=== PATIENT | female | born 1965 | race Caucasian/White ===

== ENCOUNTER 2020-05-24 17:46 | Emergency (ER) | payer OTHER, SELFPAY ==
--- NOTE | ~2020-05-24 | XR_ITS ---
EXAMINATION: XR chest 2V 05/24/2020 18:31 INDICATION: Chest tightness PROCEDURE: 2 view chest COMPARISON: 01/07/2019 FINDINGS: The lungs are clear. The cardiomediastinal silhouette is within normal limits. There are no pleural effusions. There is no pneumothorax suspected. IMPRESSION: 1: NO ACUTE CARDIOPULMONARY DISEASE. Reviewed, dictated and finalized at location A. 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
--- NOTE | ~2020-05-24 | CT_ITS ---
EXAMINATION: CTA chest PE protocol DATE: 05/24/2020 21:13 [employer]IPPER AUT[employer] INDICATION: Shortness of breath TECHNIQUE: Computed tomographic angiography (CTA) of the chest was performed with 100 mL Omnipaque-35 0 intravenous contrast. The dose-length product was 204.19 mGy-cm. Maximum intensity projection 3D-re constructions of the aorta and other arteries were constructed by the technologist on a separate work station. Automated exposure control and iterative reconstruction technique were employed. COMPARISON: Chest dated 05/24/2020. FINDINGS: Study is technically adequate without evidence for pulmonary embolism. Evaluation of subseg mental pulmonary arteries in the lower lobes limited by motion. No pleural or pericardial effusion. N o thoracic lymphadenopathy. No evidence for aortic aneurysm or dissection. Heart size normal. Upper a bdomen is unremarkable. No endobronchial lesions. No focal airspace disease. No pneumothorax. No acut e osseous abnormality. IMPRESSION: 1. No acute cardiopulmonary disease. No evidence for pulmonary embolism. Evaluation of lower lobe seg mental arteries limited by motion. Reviewed, dictated and finalized at location A. PER AUTOMATIC IMPRESSION: 1. No acute cardiopulmonary disease. No evidence for pulmonary embolism. Evalua tion of lower lobe segmental arteries limited by motion.
[2020-05-24 17:50] VITALS: BP 168/70; PULSE 118; RESP 18; TEMP 36.5; O2SAT 100
--- NOTE | 2020-05-24 17:58 | ECG_ITS ---
Measurements Intervals [place] Rate: 108 P: 71 LA: 114 QRS: 68 QRSD: 90 T: 4 QT: 320 QTc: 429 Interpretive Statements SINUS TACHYCARDIA WITH SHORT LA INTERVAL POSSIBLE LEFT ATRIAL ENLARGEMENT BORDERLINE ST-T WAVE ABNORMALITY- ANTEROLAT/INF LEADS BASELINE ARTIFACT- II, AVR, AVL, AVF, V1, V3 ABNORMAL ECG Electronically Signed On 05-25-2020 7:20:29 [employer] by Harley Alvarez D.O.
--- NOTE | 2020-05-24 18:03 | ED.ARRPALP ---
HPI - Arrhythmia/Palpitations General Chief Complaint: Arrhythmia/Palpitations Stated Complaint: chest palpitations Time Seen by Provider: 05/24/20 17:51 Source: RN notes reviewed History of Present Illness HPI narrative: Patient presents to emergency department from home for heart palpitations. Patient states for the past 2 hours she has been having episodes feel like her heart is racing. She states her heart rate goes up she does feel some mild midsternal tightness. She states that it will rate and will go up and down on its own. She denies any fevers or chills shortness of breath abdominal pain nausea vomiting or any other symptoms. She states she did have increased caffeine intake today secondary to cough congestion denies any previous cardiac history Related Data Home Medications Medication Instructions Recorded Confirmed conjugated estrogens [Premarin] 05/24/20 cyanocobalamin (vitamin B-12) mcg INTRANASAL 05/24/20 [Nascobal] estradiol-levonorgestrel [Climara patch 05/24/20 Pro] Allergies Allergy/AdvReac Type Severity Reaction Status Date / Time propoxyphene Allergy Severe N/V Verified 01/07/19 09:16 Review of Systems Review of Systems: Narrative: Gen.: Denies fevers or chills ENT: Denies congestion Respiratory: Denies shortness of breath or cough CV: See HPI GI: Denies abdominal pain nausea, emesis or diarrhea Musculoskeletal: Denies back pain or muscle pain Neuro: Denies numbness, tingling, weakness or focal weakness Skin: Denies rash Except as documented, all other systems reviewed and negative [facility] Past Medical History Medical History (Updated 05/24/20 @ 22:29 by Ace Flynn DO) Patient denies significant medical history Social History Social History (Updated 05/24/20 @ 18:04 by Ace Flynn DO) Smoking status: Never smoker Exam Narrative: Exam Narrative: APPEARANCE: No acute distress, nontoxic, resting in bed EYES: EOMI HEENT: Normocephalic, atraumatic, OMM RESPIRATORY: No respiratory distress Clear to auscultation bilaterally with no rhonchi wheezing or rales. CARDIOVASCULAR: Regular rate and rhythm without murmurs rubs or gallops. ABDOMINAL: Soft, nontender, nondistended, no rebound or guarding MUSCULOSKELETAl: Moves all extremities. No clubbing, cyanosis or edema. NEURO: Awake and alert. Following commands, speech normal, no focal deficits SKIN:: Warm, dry. No rashes lesions or abrasions PSYCHIATRIC: Normal affect/mood, Course Course Emergency Course: Patient remained on cardiac cath lab technologist throughout stay in ED no arrhythmias noted. Heart rate did improve to the 90s. Patient does state that she had been on oral hormone therapy and is being followed by Dr. Benjamin she was stopped on her oral therapy on and is scheduled to start a patch tomorrow states Dr. Benjamin is her primary care physician Called and discussed with Dr. John for Dr. Benjamin presentation work-up agrees plan for discharge we did discuss the patient's TSH and they will follow as an outpatient Discussed with patient results of workup and diagnosis. Discussed need for follow-up with primary care, proper use of medication, and reasons to return to the emergency department. Patient understands and agrees to current treatment plan Vital Signs Vital signs: Vital Signs Temperature 97.7 F 05/24/20 17:50 Pulse Rate 118 H 05/24/20 17:50 Respiratory Rate 18 05/24/20 17:50 Blood Pressure 168/70 H 05/24/20 17:50 Pulse Oximetry 100 05/24/20 17:50 Temperature 97.7 F 05/24/20 17:50 Pulse Rate 94 05/24/20 21:41 Respiratory Rate 20 05/24/20 21:41 Blood Pressure 142/74 H 05/24/20 21:41 Pulse Oximetry 99 05/24/20 21:41 MDM - Arrhythmia/Palpitations MDM Narrative Medical decision making narrative: Patient's EKGs and labs are without significant high risk changes. Cardiac risk factors reviewed. Patient is felt likely low risk for ACS and reasonable for further risk stratifi
[2020-05-24 18:16] LABS: Basophils Absolute Auto 0.1 K/mm3 (0.0-0.1); Basophils Percent Auto 0.6 % (0.2-1.2); Eosinophils Absolute Auto 0.1 K/mm3 (0-0.3); Eosinophils Percent Auto 0.9 % (0-4.4); Hematocrit 40.1 % (37.0-47.0); Hemoglobin 13.6 g/dL (12.0-15.0); Immature Granulocyte Absolute 0.05 K/mm3 (0.00-0.031); Immature Granulocyte Percent A 0.4 % (0-0.5); Lymphocytes Absolute Auto 2.17 K/mm3 (0.9-3.2); Lymphocytes Percent Auto 18.1 % (18.3-44.2); Mean Corpuscular HGB Conc 33.9 g/dl (32-36); Mean Corpuscular Hemoglobin 31.5 pg (26-34); Mean Corpuscular Volume 92.8 fl (80-100); Monocytes Absolute Auto 0.5 K/mm3 (0.1-0.6); Monocytes Percent Auto 4.4 % (2.6-8.5); Neutrophils Percent Auto 75.6 % (45.5-73.1); Platelet Count Result 343 k/mm3 (150-375); Red Blood Count 4.32 M/mm3 (4.2-5.4); Red Cell Distribution Width 12.4 % (11.5-14.5)
[2020-05-24 18:23] LABS: INR 0.9; Partial Thromboplastin Time 30.5 SECONDS (22.3-36.8); Prothrombin Time 12.1 Seconds (11.1-14.7)
[2020-05-24 18:31] LABS: Anion Gap 10 mmol/L (8-16); Blood Urea Nitrogen 12 mg/dL (7-17); Carbon Dioxide 26 mmol/L (22-30); Chloride 102 mmol/L (98-107); Estimated CRCL calculation 93 ml/min; Estimated Glomerular Filt Rate > 60; Glucose 112 mg/dL (65-105); Potassium 3.3 mmol/L (3.4-5.0); Sodium 138 mmol/L (137-145)
[2020-05-24] MEDS: SODIUM CHLORIDE 0.9% IV 1,000 ML 999 ML IV CONT (18:38)
[2020-05-24 18:43] LABS: Troponin I < 0.012 ng/mL (0.000-0.034)
[2020-05-24 18:55] LABS: D Dimer 0.27 ug/mL (<0.48)
[2020-05-24 19:27] VITALS: BP 142/72; PULSE 98; RESP 18; O2SAT 99
[2020-05-24 21:41] VITALS: BP 142/74; PULSE 94; RESP 20; O2SAT 99
[2020-05-24 21:46] LABS: Troponin I < 0.012 ng/mL (0.000-0.034)
[2020-05-24 22:05] LABS: Thyroid Stimulating Hormone 0.236 uIU/mL (0.465-4.680)
[2020-05-24] MEDS: POTASSIUM CHLORIDE 20 MEQ TABLET PO (22:13)
[2020-05-24 22:46] VITALS: BP 132/78; PULSE 88; RESP 18; O2SAT 99
== END 2020-05-24 22:48 | disposition home or self-care (01) ==
PROVIDERS: Emergency Provider Emergency Medicine
DX: R00.2 Palpitations (principal); R00.0 Tachycardia, unspecified; R94.31 Abnormal electrocardiogram [ECG] [EKG]
CPT/HCPCS: 36415; 71046; 71275; 80048; 84443; 84484; 85025; 85380; 85610; 85730; 93005; 96360; 99284; A9270; J7030; Q9967

== ENCOUNTER 2020-10-21 09:42 | Outpatient (CLI) | payer OTHER, SELFPAY ==
--- NOTE | ~2020-10-21 | MM_ITS ---
EXAMINATION: MM screening [facility] HISTORY: Screening mammogram TECHNIQUE: Craniocaudal and mediolateral oblique 3-D tomosynthesis images were obtained and synthetic 2-D images were generated. CAD analysis was submitted and interpreted. COMPARISON: 08/07/2019, 07/18/2018, 07/13/2017 BREAST PARENCHYMAL COMPOSITION: There are scattered areas of fibroglandular density. FINDINGS: There is no evidence of suspicious mass, calcification, or architectural distortion to sugg est malignancy in either breast. There has been no suspicious interval change. IMPRESSION: 1. No mammographic evidence of malignancy. 2. Recommend routine screening mammography in one year. BI-RADS Category 1: Negative Reviewed, dictated and finalized at location A.
--- NOTE | ~2020-10-21 | DEXA_ITS ---
Bone Density Report Name: Brenda Cotter Age: 55 Sex: Female Ethnicity: White Date of : 1965 Indication: parental hip fracture; height loss; Referring Provider: CARMEN WOODS Study: Bone densitometry was performed. Exam Date: October 21, 2020 Accession number: [id number] Bone Density: Region BMD T-score Z-score Classification AP Spine (L1, L2, L3) 1.066 0.4 1.5 Normal Femoral Neck (Left) 0.673 -1.6 -0.5 Osteopenia Total Hip (Left) 0.867 -0.6 0.1 Normal Total Hip Bilateral Avg 0.867 -0.6 0.1 Normal Femoral Neck (Right) 0.688 -1.4 -0.4 Osteopenia Total Hip (Right) 0.867 -0.6 0.1 Normal World Health Organization criteria for BMD impression classify patients as: Normal (T-score at or above -1.0), Osteopenia (T-score between -1.0 and -2.5), or Osteoporosis (T-score at or below -2.5). 10-year Fracture Risk: FRAX not reported because: Premenopausal woman Clinical Information Provided by Patient: Parent has had a hip fracture Has used the following medications: Vitamin D Patient maximum height was 65 Onset of menses at age 13 Premenopausal Number of children 4 Impression: The patient's bone mass is within expected range for age, gender and ethnicity. The patient has risk factors, including: parental hip fracture. Discussion: BONE DENSITY IS WITHIN EXPECTED LIMITS FOR AGE, SEX AND RACE. Bone density is within expected limits for age, sex and race at all sites measured. The patient should follow a healthful lifestyle (good nutrition with adequate calcium and vitamin D, and appropriate weight-bearing exercise). Follow-Up: Consider repeating this study in 2 to 3 years to reassess this patient's status, or sooner if there is some new clinical indication. Reported by: [facility] on 10/21/2020 10:15:00 AM. Reviewed, dictated and finalized at location ANehemias CLINE
== END 2020-10-21 09:43 | disposition home or self-care (01) ==
LOC: ANHIMG 09:46
PROVIDERS: PCP Internal Medicine; Visit Provider Obstetrics & Gynecology Gynecology
DX: Z12.31 Encounter for screening mammogram for malignant neoplasm of breast (principal); Z78.0 Asymptomatic menopausal state; M85.852 Other specified disorders of bone density and structure, left thigh; M85.851 Other specified disorders of bone density and structure, right thigh
CPT/HCPCS: 77063; 77067; 77080

== ENCOUNTER 2021-11-17 10:13 | Outpatient (CLI) | payer OTHER, SELFPAY ==
--- NOTE | ~2021-11-17 | MM_ITS ---
EXAMINATION: MM screening [facility] HISTORY: Screening TECHNIQUE: Craniocaudal and mediolateral oblique 3-D tomosynthesis images were obtained and synthetic 2-D images were generated. CAD analysis was submitted and interpreted. COMPARISON: Comparison to multiple prior studies sequentially, with oldest reviewed study dated 06/24. BREAST PARENCHYMAL COMPOSITION: There are scattered areas of fibroglandular density. FINDINGS: There is no evidence of suspicious mass, calcification, or architectural distortion to sugg est malignancy in either breast. There has been no suspicious interval change. IMPRESSION: 1. No mammographic evidence of malignancy. 2. Recommend routine screening mammography in one year. BI-RADS Category 1: Negative Reviewed, dictated and finalized at location A.
== END 2021-11-17 10:14 | disposition home or self-care (01) ==
LOC: ANHIMG 10:15
PROVIDERS: PCP Internal Medicine; Visit Provider Nurse Practitioner
DX: Z12.31 Encounter for screening mammogram for malignant neoplasm of breast (principal)
CPT/HCPCS: 77063; 77067